=== PATIENT | male | born 1980 | race Caucasian/White ===

== ENCOUNTER 2016-09-17 08:03 | Emergency (ER) ==
[2016-09-17 08:08] VITALS: BP 138/90; TEMP 97.7; BMI 28.0
--- NOTE | 2016-09-17 08:22 | ED.PDOC ---
General ED Provider: Dr. RACHEL STEWART JR Chief Complaint: Tooth Problem Stated Complaint: onset 2 nites ago--states molar was "temporized" by dentist last year and now feels it is infected--recently [place].[End ]2 nights 97.7 73 20 98% 138/90 810 Time Seen by Physician: 08:16 Mode of Arrival: Walk-In Information Source: Patient Exam Limitations: No limitations Nursing and Triage Documentation Reviewed and Agree: No Review of Systems - Review Of Systems Constitutional: Reports: No symptoms Eyes: Reports: No symptoms Ears, Nose, Mouth, Throat: Reports: Mouth pain (left first molar obious lesion) Respiratory: Reports: Cough Cardiac: Reports: No symptoms GI: Reports: No symptoms : Reports: No symptoms Musculoskeletal: Reports: No symptoms Skin: Reports: No symptoms Neurological: Reports: No symptoms Endocrine: Reports: No symptoms Hematologic/Lymphatic: Reports: No symptoms All Other Systems: Other Past Medical History - Past Medical History Previously Healthy: Yes Endocrine: Reports: None Cardiovascular: Reports: None Respiratory: Reports: None Hematological: Reports: None Gastrointestinal: Reports: None Genitourinary: Reports: None Neuro/Psych: Reports: None Musculoskeletal: Reports: None Cancer: Reports: None - Surgical History General Surgical History: Reports: Unknown - Family History Family History: Reports: Unknown - Social History Smoking Status: Current every day smoker, Light tobacco smoker Hx Substance Use: No Alcohol Screening: None Physical Exam - Physical Exam Appearance: Well-appearing Pain Distress: Moderate Eyes: OFE, EOMI, Conjunctiva clear ENT: Ears normal, Nose normal, Oropharynx normal Neck: Supple (no lad) Psychiatric: Affect appropriate, Mood appropriate Critical Care Note - Critical Care Note Total Time (mins): 0 Course - Course Vital Signs: Temp Pulse Resp BP Pulse Ox 09/17/16 08:04 97.7 F 73 20 138/90 98 Departure - Departure Time of Disposition: 08:23 Disposition: HOME SELF-CARE Discharge Problem: Toothache Instructions: Dental Caries (ED), Toothache (ED) Condition: Good Pt referred to PMD for follow-up: Yes Additional Instructions: follow up with dentist as soon as possible may use dental wax to control irritation from air or water Naprosyn for pain [place] for pain not controlled [place] [facility] antibiotic until gone Tooth needs to be repaired or removed- note wisdom tooth may be impacted- check with dentist Prescriptions: Hydrocodone Bit/Acetaminophen [[place] 5-325] 1 - 2 tab PO Q6HR PRN #12 tablet PRN Reason: pain Naproxen [Naprosyn] 500 mg PO Q12HR PRN #30 tablet PRN Reason: PAIN Penicillin V Potassium 500 mg PO QID #28 tablet Allergies/Adverse Reactions: Allergies No Known Allergies Allergy (Unverified 09/17/16 08:10) Home Medications: Ambulatory Orders Gabapentin 600 mg PO TID 09/17/16 Hydrocodone Bit/Acetaminophen [[place] 5-325] 1 - 2 tab PO Q6HR PRN #12 tablet Naproxen [Naprosyn] 500 mg PO Q12HR PRN #30 tablet 09/17/16 Penicillin V Potassium 500 mg PO QID #28 tablet 09/17/16 Transfer Form Completed: No Disposition Discussed With: Patient
== END 2016-09-17 08:43 | disposition home or self-care (01) ==
LOC: ED 08:03
DX: K08.89 Other specified disorders of teeth and supporting structures (principal); F17.210 Nicotine dependence, cigarettes, uncomplicated
CPT/HCPCS: 99282

== ENCOUNTER 2016-10-22 14:50 | Emergency (ER) ==
[2016-10-22 14:57] VITALS: BP 147/84; TEMP 97.5; BMI 27.1
--- NOTE | 2016-10-22 17:30 | ED.PDOC ---
General ED Provider: Dr. RACHEL STEWART JR Chief Complaint: Abscess Stated Complaint: Abscess to rt cheek x 2 days. Squeezed nodule, expelled pus. [facility] has a week waiting list to see PMD in [place].[ End ]2 days 97.5 95 20 97 % 147/84 02/01 took aleve Time Seen by Physician: 17:30 Mode of Arrival: Walk-In Information Source: Patient Exam Limitations: No limitations Primary Care Provider: UZMA HELTON Nursing and Triage Documentation Reviewed and Agree: No Skin Complaint Exam - Skin/Soft Tissue Complaint/Exam Onset/Duration: 2 days right malar area has beeen expressin gpus requests other pain mediac Symptoms Are: Still present Timing: Intermittent Initial Severity: Moderate Current Severity: Moderate Location: right malar Character: Reports: Redness, Swelling, Raised, Painful Aggravating: Reports: Heat, Touch Alleviating: Reports: Heat Associated Signs and Symptoms: Reports: Itching, Drainage, Tenderness. Denies: Fever, Chills Related History: Denies: Similar episode Skin Findings: Present: Erythema, Induration, Skin lesion. Absent: Fluctuant mass, Lymphadenopathy, Lymphangitic streaking, Dry scaly skin, Weeping skin, Wet ulceration, Dry ulceration, Pustules Differential Diagnoses: Abscess, Cellulitis Review of Systems - Review Of Systems Constitutional: Reports: No symptoms Eyes: Reports: No symptoms Ears, Nose, Mouth, Throat: Reports: No symptoms Respiratory: Reports: No symptoms Cardiac: Reports: No symptoms GI: Reports: No symptoms : Reports: No symptoms Musculoskeletal: Reports: No symptoms Skin: Reports: Lesions (render throbs worse when bends over) Neurological: Reports: No symptoms Endocrine: Reports: No symptoms Hematologic/Lymphatic: Reports: No symptoms All Other Systems: Other Past Medical History - Past Medical History Previously Healthy: Yes Endocrine: Reports: None Cardiovascular: Reports: None Respiratory: Reports: None Hematological: Reports: None Gastrointestinal: Reports: None Genitourinary: Reports: None Neuro/Psych: Reports: None Musculoskeletal: Reports: None Cancer: Reports: None - Surgical History General Surgical History: Reports: Back Surgery (back surg), Unknown - Family History Family History: Reports: Unknown - Social History Smoking Status: Current every day smoker, Light tobacco smoker Hx Substance Use: No Alcohol Screening: None Physical Exam - Physical Exam Appearance: Well-appearing Ill-appearing: Mild Pain Distress: Moderate Eyes: OFE, EOMI, Conjunctiva clear ENT: Ears normal, Nose normal, Oropharynx normal Neck: Supple Respiratory: Airway patent Skin: Warm, Dry Neurological: Sensation intact Psychiatric: Affect appropriate Critical Care Note - Critical Care Note Total Time (mins): 0 Course - Course Vital Signs: Temp Pulse Resp BP Pulse Ox 10/22/16 14:51 97.5 F L 95 H 20 147/84 H 97 Departure - Departure Time of Disposition: 17:32 Disposition: HOME SELF-CARE Discharge Problem: Cellulitis and abscess of face Instructions: Cellulitis (ED) Condition: Good Pt referred to PMD for follow-up: Yes Additional Instructions: warm soaks four times a day avoid squeezing infected areas antibiotic until all gone recheck PMD one week sooner if not resolving may follow with [facility] Prescriptions: Naproxen [Naprosyn] 500 mg PO Q12HR PRN #30 tablet PRN Reason: PAIN Sulfamethoxazole/Trimethoprim [Bactrim Ds 800/160 mg] 1 tab PO Q12HR #14 tablet Diphenhydramine HCl [Benadryl] 25 mg PO QID #30 capsule Allergies/Adverse Reactions: Allergies No Known Allergies Allergy (Verified 10/22/16 14:57) Home Medications: Ambulatory Orders Diphenhydramine HCl [Benadryl] 25 mg PO QID #30 capsule 10/22/16 Naproxen [Naprosyn] 500 mg PO Q12HR PRN #30 tablet 10/22/16 Sulfamethoxazole/Trimethoprim [Bactrim Ds 800/160 mg] 1 tab PO Q12HR #14 tablet 10/22/16
== END 2016-10-22 17:56 | disposition home or self-care (01) ==
LOC: ED 14:50
DX: L02.01 Cutaneous abscess of face (principal); L03.211 Cellulitis of face; F17.210 Nicotine dependence, cigarettes, uncomplicated
CPT/HCPCS: 99282